=== PATIENT | female | born 1930 | race Caucasian/White ===

== ENCOUNTER → 2017-11-02 | Outpatient (CLI) | payer MEDICARE, OTHER ==
[~2017-11-02] MED LIST: ACE325 PO; ANAS1TAB35 PO; ASPI-1471 PO; ATR80PT PO; CAND16TA12 PO; CEPH500C24 PO; CLOP75TA PO; EZE10 PO; GUAR1PAC4 PO; HCTZ25 PO; LEVO250T41 PO; METO25TA23 PO; NIT4 SL; VITA800C PO
== END ==
LOC: US 02:12
PROVIDERS: ATTEND Family Medicine
DX: I35.0 Nonrheumatic aortic (valve) stenosis (principal)
CPT/HCPCS: 93306

== ENCOUNTER → 2018-05-14 | Outpatient (CLI) | payer MEDICARE, OTHER | LOC: ZZSPRING 02:56 | PROVIDERS: ATTEND Family Medicine | DX: E78.00 Pure hypercholesterolemia, unspecified (principal) | CPT/HCPCS: 36415; 82040; 82247; 82310; 82374; 82435; 82465; 82565; 82947; 83718; 84075; 84132; 84155; 84295; 84450; 84460; 84478; 84520 ==

== ENCOUNTER → 2018-06-24 | Outpatient (REF) | payer MEDICARE, OTHER | LOC: ZZSPRING 14:37 | PROVIDERS: ATTEND Family Medicine | DX: R30.0 Dysuria (principal) | CPT/HCPCS: 81001; 87088 ==

== ENCOUNTER → 2018-07-02 | Outpatient (CLI) | payer MEDICARE, OTHER ==
[2018-07-02 14:32] LABS: PLATELET COUNT, AUTOMATED 138 K/uL (150-450)
== END ==
LOC: LAB 14:11
PROVIDERS: ATTEND Family Medicine
DX: R53.1 Weakness (principal)
CPT/HCPCS: 36415; 81001; 85025

== ENCOUNTER → 2018-07-02 | Outpatient (REF) | payer MEDICARE, OTHER | LOC: ZZSENDIN 15:46 | PROVIDERS: ATTEND Family Medicine | DX: R53.1 Weakness (principal) ==

== ENCOUNTER → 2018-09-04 | Outpatient (REF) | payer MEDICARE, OTHER | LOC: ZZSENDIN 14:15 | PROVIDERS: ATTEND Family Medicine | DX: R53.83 Other fatigue (principal) | CPT/HCPCS: 81001; 87088 ==

== ENCOUNTER → 2018-10-23 | Outpatient (REF) | payer MEDICARE, OTHER | LOC: ZZSENDIN 09:17 | PROVIDERS: ATTEND Family Medicine | DX: R30.0 Dysuria (principal); B96.89 Other specified bacterial agents as the cause of diseases classified elsewhere | CPT/HCPCS: 81001; 87077; 87088; 87186 ==